=== PATIENT | female | born 1940 | race Caucasian/White ===

== ENCOUNTER 2016-12-04 11:32 | Emergency (ER) | payer BC ==
[~2016-12-04] VITALS: Ht 152.4 cm; Wt 57.0 kg
[2016-12-04 11:35] VITALS: BP 139/68; PULSE 77; RESP 16; TEMP 98.9; O2SAT 97
[2016-12-04] MEDS ORDERED: ASPI-110 PO (11:45)
[2016-12-04] MEDS ORDERED: VITATAB11 PO (11:45)
[2016-12-04] MEDS ORDERED: ATOR10TA15 PO (11:45)
[2016-12-04] MEDS ORDERED: CO Q200C PO (11:45)
[2016-12-04] MEDS ORDERED: VITA10003 PO (11:45)
[2016-12-04] MEDS ORDERED: FISH1000 PO (11:45)
[2016-12-04] MEDS ORDERED: AMLO5CAP PO (11:45)
[2016-12-04] MEDS ORDERED: IRBE300T11 PO (11:45)
[2016-12-04] MEDS ORDERED: CLON0.1T PO (11:45)
[2016-12-04] MEDS ORDERED: MULT1TAB84 PO (11:45)
[2016-12-04] MEDS ORDERED: LEVO88TA2 PO (11:45)
[2016-12-04] MEDS ORDERED: HYDR12.56 PO (11:45)
[2016-12-04] MEDS ORDERED: CALC600T25 PO (11:45)
--- NOTE | 2016-12-04 11:59 | PD ---
HPI . possible sinus infection Chief Complaint: ENT Complaint Time Seen by Provider: 11:58 Travel History International Travel<30 days: No Contact w/Intl Traveler<30days: No Traveled to known affect area: No History of Present Illness HPI 76-year-old female with history of hypertension, hyperlipidemia and hypothyroidism secondary to thyroidectomy here with complaints of what she thinks is sinus infection. Patient reports pain, head congestion, throat itching and a dry cough for about 3 days. She initially tried some over-the- counter medication on Saturday without any relief. Her symptoms are not improving so she decided to come to the emergency room for further evaluation. She is visiting from [place] and will be returning at the end of December. She denies any fever, chills sore throat, nausea, vomiting, diarrhea, abdominal pain or other symptoms. Her was recently seen in the emergency department for bronchitis. She does not have any similar complaints. PFSH Past Medical History High Cholesterol: Yes Diminished Hearing: No Hypertension: Yes Thyroid Disease: Yes Tetanus Vaccination: Unknown Influenza Vaccination: Yes ?: Not Past Surgical History Other Surgery: Yes (THYROID) Social History Alcohol Use: Yes (SOC) Tobacco Use: No Substance Use: No Allergies-Medications (Allergen,Severity, Reaction): Coded Allergies: Codeine (Verified Allergy, Unknown, Unknown, 12/04/16) Reported Meds & Prescriptions Reported Meds & Active Scripts Active Augmentin (Amoxicillin-Clavulanate) 875-125 mg Tab 875 Mg PO BID not for use in CrCl <30 ml/min. Reported Co Q-10 (Coenzyme Q10 (Ubidecarenone)) 200 Mg Cap 1 Cap PO 4TIMESWEEKLY Fish Oil (Pearsall-3 Fatty Acids) 1,000 Mg Cap 1 Cap PO DAILY Vitamin B Complex (B-Complex Vitamins) 1 Tab 1 Tab PO DAILY Vitamin D-3 (Cholecalciferol) 1,000 Unit Tab 1,000 Units PO DAILY Multivitamin Adults (Multiple Vitamins W/ Minerals) 1 Tab 1 Tab PO DAILY Calcium (Calcium Carbonate) 600 Mg Tab 600 Mg PO DAILY Aspirin 81 (Aspirin) 81 Mg Tabdr 81 Mg PO DAILY Atorvastatin (Atorvastatin Calcium) 10 Mg Tab 10 Mg PO HS Irbesartan 300 Mg Tab 300 Mg PO DAILY Clonidine (Clonidine HCl) 0.1 Mg Tab 0.1 Mg PO TID Hydrochlorothiazide 12.5 Mg Tab 12.5 Mg PO DAILY Amlodipine-Benazepril 5-10 Mg Cap 1 Cap PO DAILY Levothyroxine (Levothyroxine Sodium) 88 Mcg Tab 88 Mcg PO DAILY Review of Systems General / Constitutional: No: Fever Eyes: No: Visual changes HENT: Positive: Sore Throat (itchy throat), Congestion, Other (facial pain), No: Headaches Cardiovascular: No: Chest Pain or Discomfort Respiratory: No: Shortness of Breath Gastrointestinal: No: Abdominal Pain Genitourinary: No: Dysuria Musculoskeletal: No: Pain Skin: No Rash Neurologic: No: Weakness Psychiatric: No: Depression Endocrine: No: Polydipsia Hematologic/Lymphatic: No: Easy Bruising Physical Exam Narrative GENERAL: AAO x 3, no acute distress, Well-nourished, well-developed patient. SKIN: Warm and dry. No visible rashes or bruising. HEAD: Normocephalic and atraumatic. EYES: No scleral icterus. No injection or drainage. ENT: No nasal drainage noted. Mucous membranes pink. Airway patent. Mild postnasal drip. No posterior pharynx erythema or exudates. Tenderness over both frontal and maxillary sinuses. TMs normal bilaterally except for mild cerumen. NECK: Supple, trachea midline. No JVD. No lymphadenopathy. CARDIOVASCULAR: Regular rate and rhythm without murmurs, gallops, or rubs. RESPIRATORY: Breath sounds equal bilaterally. No accessory muscle use. No rhonchi or rales. GASTROINTESTINAL: Abdomen soft, non-tender, nondistended. EXTREMITIES: No cyanosis or edema. BACK: Nontender without obvious deformity. No CVA tenderness. PSYCH: AAO x 3, normal affect. Data Data Last Documented VS Vital Signs Date Time Temp Pulse Resp B/P Pulse Ox O2 Delivery O2 Flow Rate FiO2 12/04/16 12:05 16 12/04/16 11:35 98.9 77 139/68 97 MDM Medical Decision Making Medical Screen Exam Complete: Yes Emergency Medical Condition: Yes Medical Record Reviewed: Yes Differential Diagnosis Acute sinusitis, allergic rhinitis, less likely influenza Narrative Course 76-year-old female with history of hypertension, hyperlipidemia and hypothyroidism secondary to thyroidectomy here with complaints of what she thinks is sinus infection. Patient reports pain, head congestion, throat itching and a dry cough for about 3 days. She initially tried some over-the- counter medication on Saturday without any relief. Her symptoms are not improving so she decided to come to the emergency room for further evaluation. She is visiting from [place] and will be returning at the end of December. She denies any fever, chills sore throat, nausea, vomiting, diarrhea, abdominal pain or other symptoms. Her was recently seen in the emergency department for bronchitis. She does not have any similar complaints. Diagnosis Primary Impression: Acute sinusitis Qualified Code: J01.90 - Acute sinusitis, recurrence not specified, unspecified location Patient Instructions: General Instructions, Sinusitis (ED) Additional Instructions: Please return to emergency department if your symptoms return or worsen. Follow up with your primary care provider. Take medications as prescribed. Med/Other Pt SpecificInfo: Prescription(s) given Scripts Amoxicillin-Clavulanate (Augmentin)875-125 mg [id number] Mg PO BID #20 TAB not for use in CrCl <30 ml/min. Prov:Micah Nichols MD 12/04/16 Disposition: 01 DISCHARGE HOME Condition: Stable Harper Britton Dec 04, 2016 11:59
[2016-12-04] MEDS ORDERED: AUGM875T PO (12:15)
== END 2016-12-04 13:45 | disposition home or self-care (01) ==
LOC: PHEFT 11:32
DX: J01.90 Acute sinusitis, unspecified (principal); E89.0 Postprocedural hypothyroidism; I10 Essential (primary) hypertension; E78.00 Pure hypercholesterolemia, unspecified; E78.5 Hyperlipidemia, unspecified
CPT/HCPCS: 99283